=== PATIENT | male | born 1985 | race Caucasian/White ===

== ENCOUNTER 2020-09-26 16:31 | Emergency (ER) | payer BC ==
[~2020-09-26] VITALS: Ht 177.8 cm; Wt 72.6 kg
[2020-09-26] MEDS ORDERED: ULTRAM50 MG PO (18:20)
[2020-09-26 18:31] VITALS: BP 123/65
== END 2020-09-26 18:33 | disposition home or self-care (01) ==
LOC: ER 16:40
DX: M79.642 Pain in left hand (principal); S62.337A Displaced fracture of neck of fifth metacarpal bone, left hand, initial encounter for closed fracture; W22.8XXA Striking against or struck by other objects, initial encounter; Y92.008 Other place in unspecified non-institutional (private) residence as the place of occurrence of the external cause; K21.9 Gastro-esophageal reflux disease without esophagitis
CPT/HCPCS: 99283